=== PATIENT | female | born 1995 | race Caucasian/White ===

== ENCOUNTER 2017-11-29 10:41 | Outpatient (CLI) | payer BC ==
[2017-11-29 11:36] LABS: #Basophils 0.1 thou/uL (0.0-0.2); #Lymphocytes 2.2 thou/uL (1.20-3.40); #Monocytes 0.7 thou/uL (0.11-0.59); #Neutrophils 5.3 thou/uL (1.40-6.50); %Basophils 1.2 % (0.0-1.0); %Eosinophils 0.3 % (0.0-10.0); %Lymphocytes 26.6 % (21.0-51.0); %Monocytes 7.9 % (0.0-10.0); %Neutrophils 64.1 % (42.0-75.0); Hemoglobin 12.4 g/dL (12.0-16.0); Mean Corpuscular HGB CONC 33.3 g/dL (32.0-36.0); Mean Corpuscular Hemoglobin 27.9 pg (27.0-31.0); Mean Platelet Volume 9.6 fL (7.4-10.4); Platelet Count 210 thou/uL (130-400); RBC Distribution Width 12.4 % (11.5-14.5); Red Blood Cell (RBC) Count 4.45 mill/uL (4.20-5.40); White Blood Cell (WBC) Count 8.2 thou/uL (4.8-10.8)
[2017-11-29 11:57] LABS: ALT (SGPT) 10 U/L (8-55); AST (SGOT) 16 U/L (5-34); Albumin 4.7 g/dL (3.5-5.0); Alkaline Phosphatase 51 U/L (40-150); Anion Gap 14 mmol/L (10-20); BUN (Urea Nitrogen) 9 mg/dL (7.0-18.7); Bilirubin, Total 0.4 mg/dL (0.2-1.2); Calc. Creatinine Clearance 0 mL/min (70-130); Calcium 9.8 mg/dL (7.8-10.44); Carbon Dioxide 27 mmol/L (22-29); Chloride 103 mmol/L (98-107); Estimated GFR-MDRD Greater than 90; Globulin 2.9 g/dL (2.4-3.5); Glucose 85 mg/dL (70-105); Lipase 31 U/L (8-78); Potassium 4.2 mmol/L (3.5-5.1); Protein, Total 7.6 g/dL (6.0-8.3); Sodium 140 mmol/L (136-145)
--- NOTE | 2017-11-29 12:57 | ULT ---
COMPLETE ABDOMEN ULTRASOUND: INDICATIONS: Abdominal pain. COMPARISON: None. FINDINGS: No focal hepatic lesion is evident. The visualized aspects of the abdominal aorta, the IVC, and the pancreas appear within normal limits. No intraluminal stones are present within the gallbladder. No gallbladder wall thickening or pericho lecystic fluid is identified. No sonographic Bethea sign was reported. The common bile duct measured 4 mm. The right kidney measured 9.8 x 3.7 x 4.2 cm. The left kidney measured 9.8 x 4 x 4.2 cm. No focal r enal lesion or hydronephrosis is evident. The spleen measured 9.2 cm. IMPRESSION: No acute sonographic abnormality. POS: [facility]
[2017-12-02 17:07] LABS: H. pylori IgA ABS Less than 9.0 units (0.0-8.9); H. pylori IgG ABS 0.22 (0.00-0.79); H. pylori IgM ABS Less than 9.0 units (0.0-8.9)
== END 2017-11-29 10:42 | disposition home or self-care (01) ==
LOC: SCSULT 10:41
PROVIDERS: ATTEND Family Medicine
DX: R10.13 Epigastric pain (principal)
CPT/HCPCS: 36415; 76700; 80053; 82150; 83690; 85025

== ENCOUNTER 2017-12-11 08:11 | Outpatient (CLI) | payer BC ==
--- NOTE | 2017-12-11 12:33 | NM ---
NUCLEAR MEDICINE HIDA SCAN: HISTORY: Epigastric pain. COMPARISON: None. TECHNIQUE: The patient was administered 5.1 millicuries of technetium 99m mebrofenin intravenously. The ejectio n fracture was determined after being given a fatty meal. FINDINGS: Appropriate uptake of the radiotracer by the hepatic parenchyma. Localization of radiotracer in the gallbladder as early as 8 minutes. Passage of radiotracer from the common bile duct into small bowel loops. Ejection fraction is 85%. IMPRESSION: 1. No scintigraphic evidence of acute cholecystitis. 2. Ejection fraction 85%. POS: [facility]
== END 2017-12-11 08:12 | disposition home or self-care (01) ==
LOC: NM 08:11
PROVIDERS: ATTEND Family Medicine
DX: R10.13 Epigastric pain (principal)
CPT/HCPCS: 78227; A9537